=== PATIENT | male | born 1980 | race Caucasian/White ===

== ENCOUNTER 2018-11-15 13:20 | Emergency (ER) | payer MEDICAID, OTHER ==
[~2018-11-15] VITALS: Ht 188 cm; Wt 88.0 kg
--- NOTE | 2018-11-15 14:25 | ED Lower Extremity ---
General Chief Complaint: Lower Extremity Stated Complaint: ANKLE INJ Nursing Triage Note: Pt reports rolling L ankle last or Thursday. Pt's ankle is visibly swollen and has areas of echimosis. Nursing Sepsis Screen: No Definite Risk Source: patient Exam Limitations: no limitations History of Present Illness Date Seen by Provider: Nov 15, 2018 Time Seen by Provider: 14:00 Initial Comments 38-year-old male who presents to the emergency room with complaints of left foot and ankle pain for the past 5 days. He reports that he rolled the ankle and tried ice and Gilbert bandages at home but has continued to swell and cause him pain. He has moderate swelling and ecchymosis to his ankle and toes. He has been ambulating on the ankle since the injury. Capillary refill and distal pulses present. Onset: last week Pain/Injury Location: left foot, left ankle Method of Injury: twisted Modifying Factors: Worse With Movement Allergies and Home Medications Allergies Coded Allergies: No Known Drug Allergies (Unverified , 11/15/18) Patient Home Medication List Home Medication List Reviewed: Yes Review of Systems Constitutional: see HPI; No chills, No fever Musculoskeletal: see HPI, joint pain (left foot and ankle) All Other Systems Reviewed Negative Unless Noted: Yes Past Wwsyhcv-Zhgcll-Pepnud Hx Past Med/Social Hx: Reviewed Nursing Past Med/Soc Hx Patient Social History Alcohol Use: Rarely Uses Recreational Drug Use: No Smoking Status: Former Smoker 2nd Hand Smoke Exposure: No Recent Foreign Travel: No Contact w/Someone Who Travel: No Recent Infectious Disease Expo: No Recent Hopitalizations: No Physical Abuse: No Sexual Abuse: No Mistreated: No Seasonal Allergies Seasonal Allergies: No Past Medical History Surgeries: Yes (back surgery ) Appendectomy, Gallbladder, Orthopedic Respiratory: No Cardiac: No Neurological: No Genitourinary: Yes Kidney Stones Gastrointestinal: Yes Gall Bladder Disease Musculoskeletal: Yes Arthritis Endocrine: No HEENT: No Cancer: No Psychosocial: No Integumentary: No Blood Disorders: No Adverse Reaction/Blood Tranf: No Family Medical History Reviewed Nursing Family Hx Physical Exam Vital Signs Vital Signs - First Documented 11/15/18 13:56 Temp 98.9 Pulse 67 Resp 15 B/P (MAP) 136/86 (103) Pulse Ox 100 O2 Delivery Room Air Capillary Refill : Less Than 3 Seconds Height, Weight, BMI Height: 6'2.00" Weight: 194lbs. oz. 87.934792or; BMI Method:Stated General Appearance: WD/WN, no apparent distress Cardiovascular: normal peripheral pulses, regular rate, rhythm, no edema, no gallop, no JVD, no murmur Respiratory: chest non-tender, lungs clear, normal breath sounds, no respiratory distress, no accessory muscle use Ankles: left ankle ecchymosis, left ankle joint effusion, left ankle pain, left ankle soft tissue tenderness, left ankle swelling Feet: left foot ecchymosis, left foot pain, left foot soft tissue tenderness, left foot swelling Neurologic/Tendon: normal sensation, normal motor functions, normal tendon functions, responds to pain, no evidence tendon injury Neurologic/Psychiatric: alert, normal mood/affect, oriented x 3 Skin: normal color, warm/dry Progress/Results/Core Measures Results/Orders My Orders Orders - CAROLANN LUEVANO Ankle, Left, 3 Views (11/15/18 14:07) Foot, Left, 3 Views (11/15/18 14:21) Vital Signs/I&O 11/15/18 11/15/18 13:56 15:04 Temp 98.9 98.9 Pulse 67 67 Resp 15 15 B/P (MAP) 136/86 (103) 136/86 (103) Pulse Ox 100 100 O2 Delivery Room Air Room Air Blood Pressure Mean: 103 Progress Progress Note : Time: 14:52 Progress Note I have seen and evaluated the patient. I have reviewed his imaging studies and reviewed the findings with him. He agrees with plan of care, plans for discharge , return precautions were given. Diagnostic Imaging Diagonstic Imaging: Xray Comments NAME: IMANI LEE [facility] REC#: [id number] PHYSICIAN: CAROLANN LUEVANO CC: CAROLANN LUEVANO; PREM DAVILA MD Page 1 of 1 RADIOLOGY REPORT [facility] [place] CC: CAROLANN LUEVANO; PREM DAVILA MD Page 1 of 1 RADIOLOGY REPORT NAME: IMANI LEE [facility] REC#: [id number] PT STATUS: DEP ER : 1980 PHYSICIAN: CAROLANN LUEVANO ADMIT DATE: 11/15/18/ER Signed Date of Exam: 11/15/18 FOOT, LEFT, 3 VIEWS INDICATION: Left foot pain AP, oblique, and lateral views of the left foot are obtained. No fracture or acute bony abnormality is seen. Joint spaces appear unremarkable. IMPRESSION: Negative left foot. Dictated by: Dictated on workstation # [id number] Dict: 11/15/18 1434 Trans: 11/15/181705 Interpreted by: PREM DAVILA MD Electronically signed by: PREM DAVILA MD 11/15/181705 NAME: JESUSIMANI RAE [facility] REC#: [id number] PHYSICIAN: CAROLANN LUEVANO CC: CAROLANN ULEVANO; PREM DAVILA MD Page 1 of 1 RADIOLOGY REPORT [facility] [place] CC: DOLORES LUEVANO ROBERT A MD Page 1 of 1 RADIOLOGY REPORT NAME: IMANI LEE [facility] REC#: [id number] PT STATUS: DEP ER : 1980 PHYSICIAN: CAROLANN LUEVANO ADMIT DATE: 11/15/18/ER Signed Date of Exam: 11/15/18 ANKLE, LEFT, 3 VIEWS INDICATION: Left ankle pain. TECHNIQUE: AP, oblique, and lateral views of the left ankle were obtained. FINDINGS: No fracture or acute bony abnormality is seen. IMPRESSION: Negative left ankle. Dictated by: Dictated on workstation # [id number] Dict: 11/15/181435 Trans: 11/15/181705 Interpreted by: PREM DAVILA MD Electronically signed by: PREM DAVILA MD 11/15/181705 Reviewed: Reviewed by Me Departure Impression Primary Impression: Ankle sprain Additional Impression: Sprain and strain of foot Disposition: 01 HOME, SELF-CARE Condition: Stable/Unchanged Departure-Patient Inst. Decision time for Depature: 14:52 Referrals: NO,LOCAL PHYSICIAN (PCP) Primary Care Physician Patient Instructions: Ankle Sprain Add. Discharge Instructions: Ice to the sore areas at 20 minute intervals. Elevation of the foot as much as possible. Tylenol and Motrin as needed for comfort. Use the Gilbert bandages was provided as needed for comfort. Follow-up with her primary care provider as needed. Return back to the emergency room for worsening symptoms or concerns as needed. All discharge instructions reviewed with patient and/or family. Voiced understanding. CAROLANN LUEVANO Nov 15, 2018 14:25
--- NOTE | 2018-11-15 14:43 | Diagnostic Imaging Report ---
INDICATION: Left foot pain AP, oblique, and lateral views of the left foot are obtained. No fracture or acute bony abnormality is seen. Joint spaces appear unremarkable. IMPRESSION: Negative left foot. Dictated by: Dictated on workstation # [id number]
--- NOTE | 2018-11-15 14:47 | Diagnostic Imaging Report ---
INDICATION: Left ankle pain. TECHNIQUE: AP, oblique, and lateral views of the left ankle were obtained. FINDINGS: No fracture or acute bony abnormality is seen. IMPRESSION: Negative left ankle. Dictated by: Dictated on workstation # [id number]
[2018-11-15 15:04] VITALS: BP 136/86
== END 2018-11-15 15:09 | disposition home or self-care (01) ==
LOC: ER 13:21
DX: S93.402A Sprain of unspecified ligament of left ankle, initial encounter (principal); Z87.891 Personal history of nicotine dependence; Z90.49 Acquired absence of other specified parts of digestive tract; Z98.890 Other specified postprocedural states; Z87.442 Personal history of urinary calculi; Z87.19 Personal history of other diseases of the digestive system; X50.1XXA Overexertion from prolonged static or awkward postures, initial encounter; Y92.009 Unspecified place in unspecified non-institutional (private) residence as the place of occurrence of the external cause
CPT/HCPCS: 73610; 73630